=== PATIENT | female | born 1985 | race Two or more races ===

== ENCOUNTER → 2018-05-28 | Outpatient (CLI) | payer BC | LOC: FIMAGING 08:41 | PROVIDERS: ATTEND Obstetrics & Gynecology | DX: Z34.81 Encounter for supervision of other normal pregnancy, first trimester (principal); Z82.79 Family history of other congenital malformations, deformations and chromosomal abnormalities; Z3A.12 12 weeks gestation of pregnancy ==

== ENCOUNTER → 2018-07-22 | Outpatient (CLI) | payer BC | LOC: FIMAGING 11:22 | PROVIDERS: ATTEND Obstetrics & Gynecology | DX: Z34.82 Encounter for supervision of other normal pregnancy, second trimester (principal); Z3A.20 20 weeks gestation of pregnancy ==